=== PATIENT | male | born 1960 | race Hispanic/Latino ===

== ENCOUNTER 2018-02-12 05:38 | Emergency (ER) | payer SELFPAY | END 2018-02-12 07:10 | disposition home or self-care (01) | LOC: ERS 05:38 | DX: K04.7 Periapical abscess without sinus (principal); E03.9 Hypothyroidism, unspecified; E78.5 Hyperlipidemia, unspecified | CPT/HCPCS: 99282 ==

== ENCOUNTER 2018-06-05 07:07 | Emergency (ER) | payer SELFPAY ==
[2018-06-05 08:16] LABS: #Basophils 0.1 thou/uL (0.0-0.2); #Eosinphils 0.1 thou/uL (0.0-0.7); #Lymphocytes 0.9 thou/uL (1.20-3.40); #Monocytes 0.7 thou/uL (0.11-0.59); #Neutrophils 4.3 thou/uL (1.40-6.50); %Basophils 1.2 % (0.0-1.0); %Eosinophils 1.5 % (0.0-10.0); %Monocytes 11.6 % (0.0-10.0); %Neutrophils 70.7 % (42.0-75.0); Hemoglobin 11.1 g/dL (14.0-18.0); Mean Corpuscular HGB CONC 33.3 g/dL (32.0-36.0); Mean Platelet Volume 6.8 fL (7.4-10.4); Platelet Count 205 thou/uL (130-400); RBC Distribution Width 11.8 % (11.5-14.5); Red Blood Cell (RBC) Count 3.27 mill/uL (4.70-6.10); White Blood Cell (WBC) Count 6.1 thou/uL (4.8-10.8)
[2018-06-05 08:24] LABS: INR-International Normal Ratio 1.1; PTT 35.3 SEC (22.9-36.1); Prothrombin Time 14.2 SEC (12.0-14.7)
[2018-06-05 08:37] LABS: ALT (SGPT) 42 U/L (8-55); AST (SGOT) 84 U/L (5-34); Albumin 3.9 g/dL (3.5-5.0); Alkaline Phosphatase 68 U/L (40-150); Anion Gap 14 mmol/L (10-20); BUN (Urea Nitrogen) Less than 4 mg/dL (8.4-25.7); Bilirubin, Total 0.6 mg/dL (0.2-1.2); Calc. Creatinine Clearance 0 mL/min (70-130); Calcium 8.6 mg/dL (7.8-10.44); Carbon Dioxide 27 mmol/L (22-29); Chloride 105 mmol/L (98-107); Estimated GFR-MDRD Greater than 90; Globulin 3.5 g/dL (2.4-3.5); Glucose 91 mg/dL (70-105); Potassium 3.8 mmol/L (3.5-5.1); Protein, Total 7.4 g/dL (6.0-8.3); Sodium 142 mmol/L (136-145)
== END 2018-06-05 11:36 | disposition home or self-care (01) ==
LOC: ERS 07:07
DX: R04.0 Epistaxis (principal); E78.5 Hyperlipidemia, unspecified; I10 Essential (primary) hypertension; Z79.899 Other long term (current) drug therapy
CPT/HCPCS: 36415; 80053; 85025; 85610; 85730; 99283

== ENCOUNTER 2018-09-17 16:19 | Emergency (ER) | payer SELFPAY ==
[2018-09-17 16:53] LABS: #Lymphocytes 1.5 thou/uL (1.20-3.40); #Monocytes 0.4 thou/uL (0.11-0.59); #Neutrophils 1.9 thou/uL (1.40-6.50); %Basophils 0.7 % (0.0-1.0); %Eosinophils 0.7 % (0.0-10.0); %Lymphocytes 38.6 % (21.0-51.0); %Monocytes 9.9 % (0.0-10.0); %Neutrophils 50.2 % (42.0-75.0); Hemoglobin 11.8 g/dL (14.0-18.0); Mean Corpuscular HGB CONC 34.8 g/dL (32.0-36.0); Mean Corpuscular Hemoglobin 33.6 pg (27.0-31.0); Mean Corpuscular Volume 96.6 fL (78.0-98.0); Mean Platelet Volume 7.5 fL (7.4-10.4); Platelet Count 146 thou/uL (130-400); RBC Distribution Width 12.6 % (11.5-14.5); Red Blood Cell (RBC) Count 3.51 mill/uL (4.70-6.10); White Blood Cell (WBC) Count 3.8 thou/uL (4.8-10.8)
--- NOTE | 2018-09-17 17:07 | RAD ---
EXAM: Chest one view: HISTORY: Chest pain COMPARISON: 10/24/2010 FINDINGS: Heart size: Within normal limits. Lungs: Clear of acute process. No evidence for pneumonia, pleural effusion, acute edema, or pneumothorax, or other significant acute process. IMPRESSION: No significant acute intrathoracic disease.
[2018-09-17 17:08] LABS: ALT (SGPT) 43 U/L (8-55); AST (SGOT) 111 U/L (5-34); Albumin 4.2 g/dL (3.5-5.0); Alkaline Phosphatase 62 U/L (40-150); Anion Gap 17 mmol/L (10-20); BUN (Urea Nitrogen) Less than 4 mg/dL (8.4-25.7); Bilirubin, Total 0.4 mg/dL (0.2-1.2); CK (CPK) 145 U/L (30-200); Calc. Creatinine Clearance 0 mL/min (70-130); Calcium 8.3 mg/dL (7.8-10.44); Carbon Dioxide 22 mmol/L (22-29); Chloride 99 mmol/L (98-107); Estimated GFR-MDRD Greater than 90; Globulin 3.7 g/dL (2.4-3.5); Glucose 118 mg/dL (70-105); Potassium 3.8 mmol/L (3.5-5.1); Protein, Total 7.9 g/dL (6.0-8.3); Sodium 134 mmol/L (136-145)
== END 2018-09-17 18:10 | disposition home or self-care (01) ==
LOC: ERS 16:19
DX: R07.89 Other chest pain (principal); R51 Headache; K29.70 Gastritis, unspecified, without bleeding
CPT/HCPCS: 71045; 80053; 82550; 84484; 85025; 93005

== ENCOUNTER 2019-05-16 17:53 | Inpatient (IN) | payer SELFPAY ==
[~2019-05-16 17:53] MED LIST: Iopamidol-370 76% 500 ML 1 ML ONE
--- NOTE | 2019-05-16 19:01 | CT ---
Head CT without contrast 05/16/2019: Comparison: None HISTORY: Injury, trauma, pain TECHNIQUE: Axial CT imaging at 5 mm intervals from vertex through skull base without contrast FINDINGS: The imaged paranasal sinuses/mastoid air cells demonstrate mild mucosal thickening of bilat eral maxillary sinuses. No displaced calvarial fracture is seen. There is a hemispheric hypodense subdural fluid collection on the left measuring up to 9 mm in transv erse dimension in the posterior superior parietal region. No definite acute left-sided subdural hemorrhage. There is a hemispheric right-sided subdural hematoma with areas of hyperdensity near the vertex and i n the right frontal region and superior/posterior areas of hypodensity consistent with acute on chronic right-sided subdural hematoma. Small volume subarachnoid hemorrhage is suspected in the front otemporal region on the right on axial image 15. IMPRESSION: Findings suggesting bilateral subdural hematomas, acute on chronic on the right and chron ic on the left. Small volume subarachnoid hemorrhage on the right. Dr. Moreno's medical student, Tara Noe, was made aware at 6:54 PM 05/16/2019.
[2019-05-16 19:11] LABS: #Basophils 0.1 thou/uL (0.0-0.2); #Eosinphils 0.1 thou/uL (0.0-0.7); #Lymphocytes 1.9 thou/uL (1.20-3.40); #Monocytes 0.9 thou/uL (0.11-0.59); #Neutrophils 3.9 thou/uL (1.40-6.50); %Basophils 1.1 % (0.0-1.0); %Eosinophils 1.4 % (0.0-10.0); %Lymphocytes 27.5 % (21.0-51.0); %Monocytes 12.8 % (0.0-10.0); %Neutrophils 57.2 % (42.0-75.0); Hemoglobin 11.2 g/dL (14.0-18.0); Mean Corpuscular Hemoglobin 36.6 pg (27.0-31.0); Mean Platelet Volume 6.7 fL (7.4-10.4); Platelet Count 222 thou/uL (130-400); Red Blood Cell (RBC) Count 3.05 mill/uL (4.70-6.10); White Blood Cell (WBC) Count 6.8 thou/uL (4.8-10.8)
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
[2019-05-16] MEDS ORDERED: Lorazepam 2 MG/ML VIAL ONE (19:20)
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
[2019-05-16 19:35] LABS: ALT (SGPT) 40 U/L (8-55); AST (SGOT) 102 U/L (5-34); Acetaminophen Less than 6.0 mcg/mL (10.0-30.0); Albumin 3.8 g/dL (3.5-5.0); Alcohol 187 mg/dL (Less than 10); Alkaline Phosphatase 73 U/L (40-110); Anion Gap 16 mmol/L (10-20); BUN (Urea Nitrogen) 5 mg/dL (8.4-25.7); Bilirubin, Total 0.4 mg/dL (0.2-1.2); Calc. Creatinine Clearance 0 mL/min (70-130); Carbon Dioxide 22 mmol/L (22-29); Chloride 97 mmol/L (98-107); Estimated GFR-MDRD Greater than 90; Globulin 3.2 g/dL (2.4-3.5); Glucose 103 mg/dL (70-105); Potassium 3.6 mmol/L (3.5-5.1); Salicylate Less than 8.0 mg/dL (15.0-30.0); Sodium 131 mmol/L (136-145)
[2019-05-16 19:59] LABS: INR-International Normal Ratio 1.1; PTT 28.6 SEC (22.9-36.1); Prothrombin Time 13.7 SEC (12.0-14.7)
[2019-05-16] MEDS ORDERED: Ondansetron PF 4 MG/2 ML Vial IVP PRN (20:29)
[2019-05-16] MEDS ORDERED: Dextrose 50% Abboject 50 ML SYRINGE SLOW IVP PRN (20:29)
[2019-05-16] MEDS ORDERED: Dextrose 5% in Water 1,000 ML IV PRN (20:29)
[2019-05-16] MEDS ORDERED: Morphine 2 MG/ML SYRINGE SLOW IVP PRN (20:29)
[2019-05-16] MEDS ORDERED: Morphine 4 MG/ML VIAL SLOW IVP PRN (20:29)
[2019-05-16] MEDS ORDERED: hydrALAZINE 20 MG/ML VIAL SLOW IVP PRN (20:29)
[2019-05-16 20:36] LABS: Bacteria/HPF None Seen HPF (None Seen); Bilirubin Negative (Negative); Blood, Urine 1+ (Negative); Clarity Clear (Clear); Glucose, Urine (Dipstick) Normal (Negative); Leukocyte Negative Leu/uL (Negative); Nitrite Negative (Negative); Protein, Urine (Dipstick) Negative (Neg-Trace); RBC/HPF 0-3 HPF (0-3); Squamous Epithelial 0-3 HPF (0-3); Urobilinogen Normal mg/dL (Less than 2); WBC/HPF 0-3 HPF (0-3)
[2019-05-16 20:59] LABS: Magnesium 1.8 mg/dL (1.6-2.6); Phosphorus 3.6 mg/dL (2.3-4.7)
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
[2019-05-16] MEDS: Sodium Chloride 0.9% 1,000 ML IV SCH (22:46)
[2019-05-16] MEDS: Famotidine/PF 20 mg/2ml Vial SLOW IVP SCH (22:47)
[2019-05-16] MEDS: Senokot S 8.6-50 MG TAB PO SCH (22:52)
[2019-05-16] MEDS: Acetaminophen 500 MG TAB PO SCH (22:52)
[2019-05-16] MEDS: Oxazepam 10 MG CAP PO SCH (23:12)
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
[2019-05-17] MEDS: Acetaminophen 500 MG TAB PO SCH ×4 (02:24→20:47)
[2019-05-17 03:19] LABS: #Basophils 0.1 thou/uL (0.0-0.2); #Lymphocytes 0.7 thou/uL (1.20-3.40); #Monocytes 0.7 thou/uL (0.11-0.59); #Neutrophils 8.5 thou/uL (1.40-6.50); %Basophils 0.5 % (0.0-1.0); %Eosinophils 0.1 % (0.0-10.0); %Lymphocytes 7.1 % (21.0-51.0); %Monocytes 6.8 % (0.0-10.0); %Neutrophils 85.5 % (42.0-75.0); Hemoglobin 11.2 g/dL (14.0-18.0); Mean Corpuscular HGB CONC 34.8 g/dL (32.0-36.0); Mean Corpuscular Hemoglobin 35.9 pg (27.0-31.0); Mean Platelet Volume 7.1 fL (7.4-10.4); Platelet Count 237 thou/uL (130-400); RBC Distribution Width 11.1 % (11.5-14.5); Red Blood Cell (RBC) Count 3.11 mill/uL (4.70-6.10); White Blood Cell (WBC) Count 9.9 thou/uL (4.8-10.8)
[2019-05-17 03:41] LABS: Anion Gap 19 mmol/L (10-20); BUN (Urea Nitrogen) Less than 4 mg/dL (8.4-25.7); Calc. Creatinine Clearance 102 mL/min (70-130); Calcium 7.8 mg/dL (7.8-10.44); Carbon Dioxide 19 mmol/L (22-29); Chloride 98 mmol/L (98-107); Estimated GFR-MDRD Greater than 90; Glucose 118 mg/dL (70-105); Magnesium 1.5 mg/dL (1.6-2.6); Phosphorus 3.1 mg/dL (2.3-4.7); Potassium 3.8 mmol/L (3.5-5.1); Sodium 132 mmol/L (136-145)
[2019-05-17 04:36] LABS: Amphetamine Not Detected (NotDetected); Cocaine Metabolite Screen Not Detected (NotDetected); Medtox Reader # READER 1; Methamphetamine Not Detected (NotDetected); Opiate Screen Not Detected (NotDetected); Phencyclidine (PCP) Not Detected (NotDetected); THC/Cannabinoid Screen Not Detected (NotDetected)
[2019-05-17 04:37] LABS: Barbiturates Screen Not Detected (NotDetected); Benzodiazepine Screen Detected (NotDetected); Medtox Control Line Valid? VALID (VALID); Methadone Not Detected (NotDetected); Oxycodone Screen Not Detected (NotDetected); Tricyclic Screen Not Detected (NotDetected)
[2019-05-17] MEDS: Oxazepam 10 MG CAP PO SCH ×3 (05:43→22:07)
[2019-05-17] MEDS: Levothyroxine Sodium 25 MCG TAB PO SCH (05:44)
[2019-05-17] MEDS: Levothyroxine Sodium 100 MCG TAB PO SCH (05:44)
[2019-05-17] MEDS: Sodium Chloride 0.9% 1,000 ML IV SCH ×2 (07:51→09:32)
--- NOTE | 2019-05-17 08:25 | CT ---
PRELIMINARY REPORT/[facility]/EMERGENCY AFTER HOURS PROCEDURE: Exam: Unenhanced CT brain. History: Followup intracranial bleed. Comparison: May 16, 2019 Findings: Included paranasal sinuses are clear. Calvarium is intact. Bilateral mixed density cerebr al convexity subdural hematomas are present. Subdural hematoma on left measures upwards of 9 mm, sta ble. Subdural hematoma on the right measures upwards of 9 mm, stable. There is narrowing of the woody vian fissure on right in comparison to left, similar to prior exam. Along the superior aspect is per sistent serpiginous foci secondary to subarachnoid blood. Anterior inferior frontal falx is hyperden se suggesting small subdural component measuring 2 mm, stable. Ventricles are normal size and config uration. Impression: Stable bilateral subdural hematomas. Trace subarachnoid blood, right sylvian fissure. 2 mm anterior parafalcine subdural hematoma, stable. ELECTRONICALLY SIGNED BY: Eva Rosales MD May 17, 2019 4:47:15 AM [employer] This report is intended for review by the ordering physician only, in accordance of law. If you recei ve this report in error, please call [facility] at [phone]. FINAL REPORT EMERGENCY AFTER HOURS CT BRAIN WITHOUT CONTRAST: DATE: 05/17/2019 COMPARISON: 05/16/2019 at 1843 hours. FINDINGS/IMPRESSION: I agree with the findings and impression given in the preliminary report per [facility] physici an. There are stable bilateral subdural hematomas and a questionable small amount of trace blood in the r ight sylvian fissure.
[2019-05-17] MEDS ORDERED: Levothyroxine Sodium 25 MCG TAB PO SCH (09:00)
[2019-05-17] MEDS ORDERED: FLU VACC QS2019-20(6MOS UP)/PF 60 MCG/0.5 ML SYRINGE IM ONE (09:00)
[2019-05-17] MEDS ORDERED: LEVOTHYROXINE SODIUM 200 MG PO SCH (09:00)
[2019-05-17] MEDS ORDERED: Non-Formulary Item 1 EACH (Levothyroxine Sodium [Levothyroxine Sodium] 1 TAB) PO SCH (09:00)
[2019-05-17] MEDS: Polyethylene Glycol 3350 17 GM Packet PO SCH (09:28)
[2019-05-17] MEDS: Folic Acid 1 MG TAB PO SCH (09:28)
[2019-05-17] MEDS: Famotidine/PF 20 mg/2ml Vial SLOW IVP SCH (09:28)
[2019-05-17] MEDS: Senokot S 8.6-50 MG TAB PO SCH ×2 (09:28→20:47)
[2019-05-17] MEDS: Thiamine 100 MG TAB PO SCH (09:28)
[2019-05-17] MEDS: Multivitamin W/ Minerals 1 TAB PO SCH (09:28)
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
[2019-05-17] MEDS ORDERED: Magnesium 2 GM/50 ML 2 GM in Premix Bag 1 BAG IVPB SCH (10:00)
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
[2019-05-18] MEDS: Acetaminophen 500 MG TAB PO SCH ×3 (02:32→16:00)
[2019-05-18] MEDS: Levothyroxine Sodium 100 MCG TAB PO SCH (05:56)
[2019-05-18] MEDS: Oxazepam 10 MG CAP PO SCH ×2 (05:56→14:07)
[2019-05-18] MEDS: Levothyroxine Sodium 25 MCG TAB PO SCH (05:57)
[2019-05-18 06:28] LABS: Anion Gap 13 mmol/L (10-20); BUN (Urea Nitrogen) 5 mg/dL (8.4-25.7); Calc. Creatinine Clearance 90 mL/min (70-130); Calcium 8.4 mg/dL (7.8-10.44); Carbon Dioxide 24 mmol/L (22-29); Chloride 101 mmol/L (98-107); Estimated GFR-MDRD Greater than 90; Glucose 111 mg/dL (70-105); Magnesium 2.2 mg/dL (1.6-2.6); Phosphorus 2.4 mg/dL (2.3-4.7); Potassium 3.4 mmol/L (3.5-5.1); Sodium 135 mmol/L (136-145)
[2019-05-18] MEDS: Polyethylene Glycol 3350 17 GM Packet PO SCH (08:43)
[2019-05-18] MEDS: Multivitamin W/ Minerals 1 TAB PO SCH (08:44)
[2019-05-18] MEDS: Senokot S 8.6-50 MG TAB PO SCH (08:44)
[2019-05-18] MEDS: Thiamine 100 MG TAB PO SCH (08:44)
[2019-05-18] MEDS: Folic Acid 1 MG TAB PO SCH (08:44)
[2019-05-18] MEDS ORDERED: Potassium Phosphate 30 MMOL in Sodium Chloride 0.9% 250 ML 250 ML IVPB ONE (08:45)
[2019-05-18 11:21] VITALS: BP 119/78; TEMP 98.2
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
== END 2019-05-18 16:22 | disposition home or self-care (01) | DRG 86 ==
LOC: ERS 17:53 → CCU 20:35 → SURG A 05-17 16:18
PROVIDERS: ADMIT Surgery; ATTEND Surgery
DX: S06.6X1A Traumatic subarachnoid hemorrhage with loss of consciousness of 30 minutes or less, initial encounter (principal); E27.49 Other adrenocortical insufficiency; E87.1 Hypo-osmolality and hyponatremia; S06.5X1A Traumatic subdural hemorrhage with loss of consciousness of 30 minutes or less, initial encounter; Z85.850 Personal history of malignant neoplasm of thyroid; E89.0 Postprocedural hypothyroidism; Z88.0 Allergy status to penicillin; R40.2142 Coma scale, eyes open, spontaneous, at arrival to emergency department; R40.2362 Coma scale, best motor response, obeys commands, at arrival to emergency department; R40.2232 Coma scale, best verbal response, inappropriate words, at arrival to emergency department; R29.713 NIHSS score 13; S00.81XA Abrasion of other part of head, initial encounter; F10.10 Alcohol abuse, uncomplicated; Y90.6 Blood alcohol level of 120-199 mg/100 ml; V49.88XA Car occupant (driver) (passenger) injured in other specified transport accidents, initial encounter; Y93.89 Activity, other specified; Y92.89 Other specified places as the place of occurrence of the external cause; E03.9 Hypothyroidism, unspecified; E78.5 Hyperlipidemia, unspecified; I10 Essential (primary) hypertension; R40.2414 Glasgow coma scale score 13-15, 24 hours or more after hospital admission
CPT/HCPCS: 36415; 70450; 71260; 72125; 74177; 80048; 80053; 80306; 80307; 81003; 81015; 83735; 84100; 84484; 85025; 85610; 85730; 86850; 86900; 86901; 93005; 96361; 96374; G0390; J2060; J2270; J3475; J7050; Q9967; S0028

== ENCOUNTER 2019-06-20 13:13 | Outpatient (CLI) | payer OTHER ==
--- NOTE | 2019-06-20 13:48 | CT ---
CT HEAD WITHOUT IV CONTRAST COMPARISON: 05/17/2019 HISTORY: Follow-up traumatic subdural hemorrhage. TECHNIQUE: Axial CT imaging at 5 mm intervals from vertex through skull base without contrast FINDINGS: Again noted are bilateral subdural mixed density collections each of which has enlarged when compared to prior exam. The subdural hemorrhage on the left now measures 1.8 cm in greatest transverse dimension with greatest transverse dimension on the prior study of 1 cm. Greatest transverse dimensio n of the subdural collection/hemorrhage on the right measures 1.1 cm with previous measurement of 0.6 cm. The subdural collections extend from the bifrontal regions superiorly to the vertex bilateral ly and are also seen along the left frontoparietal convexities. There is greater degree of sulcal effacement on today's examination. There is mild mass effect on the frontal lobes bilaterally. No ally ft of midline structures is present. Ventricular system generally appears smaller in size compared to prior exam. There is no evidence of an acute cortical infarction. Visualized paranasal sinuses are clear. Osseous structures appear intact. IMPRESSION: 1. Interval enlargement of bilateral subdural collections/hemorrhages with largest subdural collectio n again seen on the left with greatest transverse dimension of 1.8 cm. There is greater degree of sulcal effacement on today's examination. No midline shift is present. 2. Above findings discussed with Michelle neurosurgical ANGELES, on 06/20/2019 at 1344 hours. The patient w ill remain in radiology until further direction is provided by neurosurgery.
== END 2019-06-20 13:14 | disposition home or self-care (01) ==
LOC: CT 13:13
PROVIDERS: ATTEND Surgery
DX: S06.5X9A Traumatic subdural hemorrhage with loss of consciousness of unspecified duration, initial encounter (principal)
CPT/HCPCS: 70450

== ENCOUNTER 2019-07-19 09:21 | Outpatient (CLI) | payer OTHER ==
--- NOTE | 2019-07-19 10:04 | CT ---
Exam: Head CT without contrast HISTORY: Posttraumatic subdural hematoma. Follow-up exam. COMPARISON: 06/20/2019 FINDINGS: Hemorrhage: Redemonstration of mixed attenuation bifrontal and temporal extra-axial hematomas, compat ible with subdural hematomas. Mixed attenuation suggesting components of subacute and possibly early chronic subdurals. Largest subdural is still along the left frontal convexity, measuring 1.6 cm . There is persistent mass effect upon the left frontal lobe with mild sulcal effacement. No significant midline shift. Brain parenchyma: Cortical flood-white matter differentiation is preserved. No mass effect or midline shift. Basilar cisterns are patent. Ventricular system: Stable configuration the ventricular system Calvarium: Intact. Sinuses and mastoid air cells: Adequate aeration. IMPRESSION: Redemonstration of mixed attenuation bifrontal and temporal subdural hematomas. Mixed attenuation fav ors a component of late subacute/early chronic hemorrhage. There is persistent mass effect upon the left cerebrum without midline shift. Results of study conveyed to Dr. Hidalgo via [employer] connect 07/19/2019 at 10:01 AM Code CR
== END 2019-07-19 09:22 | disposition home or self-care (01) ==
LOC: BICCT 09:21
PROVIDERS: ATTEND Surgery
DX: S06.5X9D Traumatic subdural hemorrhage with loss of consciousness of unspecified duration, subsequent encounter (principal)
CPT/HCPCS: 70450

== ENCOUNTER 2019-07-31 08:24 | Outpatient (CLI) | payer OTHER ==
--- NOTE | 2019-07-31 09:04 | CT ---
Exam: Head CT without contrast HISTORY: Follow-up subdural hematoma COMPARISON: 07/19/2019 FINDINGS: Hemorrhage: No acute intraparenchymal hemorrhage or extra-axial hematoma. Redemonstration of bilatera l subdural hematomas. Largest subdural hematoma is along the left frontal convexity and measures 1.9 cm, previously measuring 1.6 cm. There is mass effect upon the left frontal and temporal lobe. Ap proximately 2 mm of [id number] subfalcine herniation. Basilar cisterns are patent. Essentially stable subdural hematoma along the right frontal and temporal convexities. Brain parenchyma: Cortical flood-white matter differentiation is preserved. No mass effect or midline shift. Basilar cisterns are patent.Mild sulcal effacement the left cerebrum secondary to the left-sided subdural collection. Ventricular system: Ventricles and sulci are patent and symmetric. Calvarium: Intact. Sinuses and mastoid air cells: Adequate aeration. IMPRESSION: 1. Redemonstration of bilateral subdural hematomas. Subdural hematomas are chronic. Persistent mass e ffect upon the left frontal lobe. 2. No acute intracranial hemorrhage
== END 2019-07-31 08:25 | disposition home or self-care (01) ==
LOC: CT 08:24
PROVIDERS: ATTEND Surgery
DX: I62.03 Nontraumatic chronic subdural hemorrhage (principal)
CPT/HCPCS: 70450

== ENCOUNTER 2019-07-31 10:00 | Inpatient (IN) | payer OTHER ==
[2019-08-02] MEDS ORDERED: Clindamycin/D5W 900 mg/50 ml Premix Bag ONE (11:23)
[2019-08-02] MEDS ORDERED: Levofloxacin 500 mg/D5W 100 ml Premix Bag ONE (11:23)
[2019-08-02] MEDS ORDERED: Lidocaine 1% w/Epinephrine 1:100K 20 ML VIAL ONE (12:46)
[2019-08-02] MEDS ORDERED: Thrombin 5000 UNITS/5 ML VIAL ONE ×2 (12:46→14:23)
[2019-08-02] MEDS ORDERED: Midazolam HCl 2 mg/2 ml Vial ONE (12:47)
[2019-08-02] MEDS ORDERED: Fentanyl 250 MCG/5 ML VIAL ONE (12:47)
[2019-08-02] MEDS ORDERED: Lidocaine 0.5%/Epinephrine 1:200,000 50 ml Vial ONE (12:48)
[2019-08-02] MEDS ORDERED: Ondansetron PF 4 MG/2 ML Vial ONE (13:35)
[2019-08-02] MEDS ORDERED: diphenhydrAMINE 50 MG/ML VIAL ONE (13:35)
[2019-08-02] MEDS ORDERED: Rocuronium Bromide 10 MG/ML (10ML VIAL) ONE (13:35)
[2019-08-02] MEDS ORDERED: Esmolol 100 MG/10 ML VIAL ONE (13:35)
[2019-08-02] MEDS ORDERED: Dexamethasone 20 MG/5 ML VIAL ONE (13:35)
[2019-08-02] MEDS ORDERED: PROPOFOL 200 MG/20 ML VIAL ONE (13:35)
[2019-08-02] MEDS ORDERED: Glycopyrrolate 0.2 MG/ML 5 ML SYRINGE ONE (13:35)
[2019-08-02] MEDS ORDERED: levETIRAcetam 1000 MG/100 ML PREMIX BAG ONE (14:00)
[2019-08-02] MEDS ORDERED: Bacitracin Zinc Ointment 30 gm TUBE ONE (14:29)
[2019-08-02] MEDS ORDERED: Morphine 2 MG/ML SYRINGE SLOW IVP PRN (15:32)
[2019-08-02] MEDS ORDERED: Fleet Enema 133 ML BOT PR PRN (15:32)
[2019-08-02] MEDS ORDERED: Ondansetron PF 4 MG/2 ML Vial IVP PRN (15:32)
[2019-08-02] MEDS ORDERED: Docusate 100 MG CAP PO PRN (15:32)
[2019-08-02] MEDS ORDERED: Mag-Al 1200 mg/1200 mg/30 ML UDCUP PO PRN (15:32)
[2019-08-02] MEDS ORDERED: Promethazine HCl 25 MG/ML VIAL IM PRN (15:35)
[2019-08-02] MEDS ORDERED: Ondansetron HCl/PF 4 MG/2 ML Vial IVP PRN (15:35)
[2019-08-02] MEDS ORDERED: Fentanyl 100 MCG/2 ML VIAL ONE (15:47)
[2019-08-02] MEDS: Clindamycin/D5W 900 MG in Premix Bag 1 BAG IVPB SCH (18:34)
[2019-08-02] MEDS: Sodium Chloride 0.9% 1,000 ML IV SCH (18:35)
[2019-08-03] MEDS: Clindamycin/D5W 900 MG in Premix Bag 1 BAG IVPB SCH ×5 (00:37→23:54)
[2019-08-03 03:54] LABS: #Monocytes 0.7 thou/uL (0.11-0.59); #Neutrophils 5.7 thou/uL (1.40-6.50); %Basophils 0.1 % (0.0-1.0); %Eosinophils 0.1 % (0.0-10.0); %Lymphocytes 13.3 % (21.0-51.0); %Monocytes 9.2 % (0.0-10.0); %Neutrophils 77.3 % (42.0-75.0); Mean Corpuscular HGB CONC 33.7 g/dL (32.0-36.0); Mean Corpuscular Hemoglobin 34.3 pg (27.0-31.0); Mean Platelet Volume 6.9 fL (7.4-10.4); Platelet Count 336 thou/uL (130-400); RBC Distribution Width 11.8 % (11.5-14.5); White Blood Cell (WBC) Count 7.3 thou/uL (4.8-10.8)
[2019-08-03 04:16] LABS: Anion Gap 15 mmol/L (10-20); BUN (Urea Nitrogen) 10 mg/dL (8.4-25.7); Calc. Creatinine Clearance 77 mL/min (70-130); Calcium 8.5 mg/dL (7.8-10.44); Carbon Dioxide 20 mmol/L (22-29); Chloride 102 mmol/L (98-107); Estimated GFR-MDRD Greater than 90; Glucose 140 mg/dL (70-105); Potassium 3.8 mmol/L (3.5-5.1); Sodium 133 mmol/L (136-145)
[2019-08-03] MEDS: Levothyroxine Sodium 100 MCG TAB PO SCH (05:07)
[2019-08-03] MEDS: Levothyroxine Sodium 25 MCG TAB PO SCH (05:08)
[2019-08-03] MEDS: HYDROcodone/Acetaminophen 7.5/325 mg Tablet PO PRN ×3 (05:09→20:23)
--- NOTE | 2019-08-03 08:15 | CT ---
PRELIMINARY REPORT/[facility]/EMERGENCY AFTER HOURS PROCEDURE EXAM: CT Head Without Intravenous Contrast. CLINICAL HISTORY: F/U [facility] TECHNIQUE: Axial computed tomography images of the head/brain without intravenous contrast. COMPARISON: CT\[place] - CT BRAIN WO CON - 07/31/2019 08:51 AM CDT FINDINGS: BRAIN: There are there are 4 tanna holes in the bilateral frontal region with a decreased the bilatera l subdural fluid collection new since the last examination. There is a left frontal drain catheter wi th the pneumocephalus in bilateral frontal region. No midline shift. VENTRICLES: No hydrocephalus. ORBITS: The orbits are unremarkable. SINUSES AND MASTOIDS: The paranasal sinuses and mastoid air cells are clear. SOFT TISSUES: No significant facial or scalp soft tissue swelling evident. No radiopaque foreign body is seen. BONES: No acute skull fracture. MISCELLANEOUS: Small amount of hyperdense fluid in the right frontal and left parietal region, may re present relative fresh blood, similar to prior examination. IMPRESSION: 1. There are there are 4 tanna holes in the bilateral frontal region with a decreased the bilateral florian bdural fluid collection new since the last examination. 2. There is a left frontal drain catheter with the pneumocephalus in bilateral frontal region. No mid line shift. 3. Small amount of hyperdense fluid in the right frontal, parietal, and left parietal region, may re present relative fresh blood, similar to prior examination. ELECTRONICALLY SIGNED BY: Brock Hays MD August 03, 2019 4:37:39 AM CDT FINAL REPORT CT BRAIN WITHOUT CONTRAST: HISTORY: Subdural hematoma followup. COMPARISON: CT brain 07/31/2019. FINDINGS: Findings and impression are concordant with the preliminary report. POS: HOME
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
[2019-08-03] MEDS: Sodium Chloride 0.9% 1,000 ML IV SCH ×2 (09:23→20:24)
[2019-08-03 10:05] VITALS: BMI 20.1
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
--- NOTE | 2019-08-03 13:05 | PRG ---
DATE OF SERVICE: 08/03/2019 Mr. Susan Shine is postoperative day 1 from bilateral chronic subdural hematoma evacuation via tanna hole. He certainly has more vigor this morning than he did preoperatively. He is alert and has no pronator drift and good strength in bilateral upper and lower extremity myotomes. His speech appears to be fluent. His CT is satisfactory. His drain output was 200 mL yesterday and 25 mL since midnight. We will leave the drain in place. We will transfer him to the step-down unit and advance his diet as tolerated along with his activity as tolerated with a Physical Therapy consultation. If he is doing well tomorrow, in my opinion, the drain can be removed and he can be transferred to the floor. Job ID: [id number]
[2019-08-03] MEDS: levETIRAcetam 500 MG TAB PO SCH (20:23)
[2019-08-04] MEDS: Levothyroxine Sodium 100 MCG TAB PO SCH (06:27)
[2019-08-04] MEDS: Levothyroxine Sodium 25 MCG TAB PO SCH (06:27)
[2019-08-04] MEDS: Clindamycin/D5W 900 MG in Premix Bag 1 BAG IVPB SCH ×4 (06:28→23:44)
--- NOTE | 2019-08-04 09:57 | PRG ---
DATE OF SERVICE: 08/04/2019 I saw Sylvain Shine in the intermediate care unit this morning. A drain is still in the left side of the cranial vault. He had a subdural hematoma evacuation on . Mr. Susan Shine is wide awake, he answers questions appropriately, he was moving both sides of his body. He feels well. Among his electronically recorded vital signs, I do not see any fevers. His blood pressures have ranged between 100s and 120s. There is good movement in all of his extremities. There is no lateralizing motor or sensory deficit. Sodium was 133 yesterday and has not been checked today. We are going to move Mr. Susan Shine's drain. He will lie flat for an hour or two after the drain is removed and then slowly sit up. We will mobilize him and get him from the intermediate care unit up to the surgical floor. If he remains neurologically well, we can look for discharge tomorrow or Tuesday. I am going to check his sodium and keep him on antiepileptic medications during his hospitalization. Job ID: [id number] MTDD
[2019-08-04] MEDS: levETIRAcetam 500 MG TAB PO SCH ×2 (10:14→20:29)
[2019-08-04] MEDS: HYDROcodone/Acetaminophen 7.5/325 mg Tablet PO PRN ×2 (10:14→17:06)
[2019-08-04] MEDS: Sodium Chloride 0.9% 1,000 ML IV SCH (12:24)
[2019-08-05] MEDS: Sodium Chloride 0.9% 1,000 ML IV SCH ×2 (01:17→13:05)
[2019-08-05] MEDS: Levothyroxine Sodium 25 MCG TAB PO SCH (05:04)
[2019-08-05] MEDS: Levothyroxine Sodium 100 MCG TAB PO SCH (05:04)
[2019-08-05] MEDS: Clindamycin/D5W 900 MG in Premix Bag 1 BAG IVPB SCH ×4 (05:05→23:11)
[2019-08-05 08:48] LABS: Anion Gap 12 mmol/L (10-20); BUN (Urea Nitrogen) 9 mg/dL (8.4-25.7); Calc. Creatinine Clearance 82 mL/min (70-130); Calcium 8.7 mg/dL (7.8-10.44); Carbon Dioxide 27 mmol/L (22-29); Chloride 95 mmol/L (98-107); Estimated GFR-MDRD Greater than 90; Glucose 102 mg/dL (70-105); Potassium 3.5 mmol/L (3.5-5.1); Sodium 130 mmol/L (136-145)
[2019-08-05] MEDS: levETIRAcetam 500 MG TAB PO SCH ×2 (09:15→19:51)
[2019-08-05] MEDS: HYDROcodone/Acetaminophen 7.5/325 mg Tablet PO PRN ×2 (09:24→13:44)
--- NOTE | 2019-08-05 09:42 | PRG ---
DATE OF SERVICE: 08/05/2019 Mr. Susan Shine has been transferred out of the ICU yesterday to the regular floor. He is rather comfortable as I entered the room, is eating breakfast and speaking with his . He does complain of some incisional pain. He did not walk much yesterday, only transferred from the bed to the restroom and back. He did not get in the hallways or walk around his room. Among the electronically recorded vital signs, I do not see any fevers. On neurological examination, I do not see any lateralizing motor or sensory deficits. Incisions are well approximated. The plan for today for Mr. Susan Shine is to mobilize. If he is perfectly safe for all his activities of daily living and if he keeps his food down, he can dress himself and shower and walk and he could be discharged as early as this afternoon. Otherwise, arrangements could be made for discharge home tomorrow. We are going to follow the serum sodium now. Job ID: [id number]
[2019-08-05] MEDS: Acetaminophen 325 MG TAB PO PRN (13:45)
[2019-08-05] MEDS ORDERED: diphenhydrAMINE 25 MG CAP PO PRN (21:17)
[2019-08-05] MEDS ORDERED: Hydrocerin (Eucerin) Cream 120 gm Jar TOP PRN (21:17)
[2019-08-06] MEDS: HYDROcodone/Acetaminophen 7.5/325 mg Tablet PO PRN ×2 (04:08→12:41)
[2019-08-06] MEDS: Sodium Chloride 0.9% 1,000 ML IV SCH ×2 (05:09→15:42)
[2019-08-06] MEDS: Levothyroxine Sodium 100 MCG TAB PO SCH (05:10)
[2019-08-06] MEDS: Levothyroxine Sodium 25 MCG TAB PO SCH (05:10)
[2019-08-06] MEDS: Clindamycin/D5W 900 MG in Premix Bag 1 BAG IVPB SCH ×3 (05:12→17:03)
[2019-08-06 05:28] LABS: Anion Gap 9 mmol/L (10-20); BUN (Urea Nitrogen) 9 mg/dL (8.4-25.7); Calc. Creatinine Clearance 86 mL/min (70-130); Calcium 7.9 mg/dL (7.8-10.44); Carbon Dioxide 24 mmol/L (22-29); Chloride 89 mmol/L (98-107); Estimated GFR-MDRD Greater than 90; Glucose 106 mg/dL (70-105); Potassium 3.2 mmol/L (3.5-5.1)
[2019-08-06 05:30] LABS: Sodium 119 mmol/L (136-145)
[2019-08-06] MEDS ORDERED: Sodium Chloride 3% 500 ML IVPB SCH (06:15)
[2019-08-06] MEDS: levETIRAcetam 500 MG TAB PO SCH (07:32)
[2019-08-06] MEDS: Acetaminophen 325 MG TAB PO PRN (12:40)
[2019-08-06 13:18] LABS: Sodium 125 mmol/L (136-145)
--- NOTE | 2019-08-06 15:25 | PRG ---
DATE OF SERVICE: 08/06/2019 Mr. Susan Shine is now 3 days out from his tanna hole evacuation and is neurologically intact. He has had hyponatremia. He does have a history of chronic alcohol abuse likely because he is not getting alcohol and his ADH levels have increased as they typically are suppressed with alcohol. He was given 3% saline yesterday. His sodium has gone from 133 on the 15th down to 119 early this morning; however, it has increased back up to 125. We spoke with his daughter and they prefer that he goes home. He would like to go home as well. Given that he has had improvement in his sodium at this point, I would be fine with that. We will continue Keppra I think at this time, as I would not want his sodium to drop at home and him have a seizure. Job ID: [id number]
[2019-08-06 16:07] VITALS: BP 107/73; TEMP 98.6
== END 2019-08-06 19:05 | disposition home or self-care (01) | DRG 26 ==
LOC: EDSTATUS 08-02 10:00 → SURG A 08-02 10:28 → CCU 08-02 18:16 → IMCU/EMU 08-03 12:39 → SURG B 08-04 12:02
PROVIDERS: ADMIT Surgery; ATTEND Surgery
PROC: 00C43ZZ Extirpation of Matter from Intracranial Subdural Space, Percutaneous Approach (ICD-10-PCS; principal; 2019-08-02)
PROC: 009630Z Drainage of Cerebral Ventricle with Drainage Device, Percutaneous Approach (ICD-10-PCS; 2019-08-02)
DX: I62.03 Nontraumatic chronic subdural hemorrhage (principal); E87.1 Hypo-osmolality and hyponatremia; E03.9 Hypothyroidism, unspecified; F10.10 Alcohol abuse, uncomplicated; F17.210 Nicotine dependence, cigarettes, uncomplicated; Z90.49 Acquired absence of other specified parts of digestive tract; Z88.0 Allergy status to penicillin
CPT/HCPCS: 36415; 36416; 70450; 80048; 85025; J1100; J1200; J1953; J1956; J2001; J2250; J2405; J2704; J3010; J3490; J7131; Q0163

== ENCOUNTER 2019-08-24 12:24 | Outpatient (CLI) | payer OTHER ==
--- NOTE | 2019-08-24 14:08 | CT ---
CT HEAD WITHOUT CONTRAST: 08/24/19 INDICATIONS: Follow-up subdural hematoma. Comparison made to the most recent head CT of 08/03/19 and a prior exams of 07/31/19 and . FINDINGS: Bilateral tanna holes are seen as noted on the recent study of 08/03/19 which was performed postop. Pre vious exam showed evaluation of bilateral subdurals. Here was pneumocephalus present on 08/03/19. There are persistent bilateral subdural collections on the exam of 08/03/19. On today's exam, there continues to be small bilateral subdural hematomas. These are much smaller jovita n on the prior study. On the left, there is subdural hematoma with a left frontal lobe superiorly errol sures up to 8 mm. There is a tiny subdural on the right over the right frontal lobe cortex measuring in the 4 mm range. Both of these collections show some internal densities making these complex collections. No evidence of acute hemorrhage. There is no midline shift or mass effect. Mild chronic ischemic white matter ch anges are stable. No mass or infarct within the parenchyma. IMPRESSION: Persistent bilateral chronic subdural hematoma over both frontal lobes. Slightly larger on the left a s noted above. POS: [facility]
== END 2019-08-24 12:25 | disposition home or self-care (01) ==
LOC: BICCT 12:24
PROVIDERS: ATTEND Surgery
DX: I62.03 Nontraumatic chronic subdural hemorrhage (principal)
CPT/HCPCS: 70450

== ENCOUNTER 2019-10-05 07:49 | Outpatient (CLI) | payer OTHER ==
--- NOTE | 2019-10-05 08:16 | CT ---
CT BRAIN NONCONTRAST: DATE: 10/05/2019 HISTORY: 59-year-old male follow-up chronic subdural hematomas and headache COMPARISON: 08/24/2019 FINDINGS: Again noted are the 4 upper tanna holes. The small left chronic subdural hematoma has further decreased in volume, and currently measures appr oximately 5 mm in transverse dimension at the upper portion of the supratentorial intracranial cavity. The previously demonstrated small right chronic subdural hematoma is difficult to visualize on the cu rrent CT, and appears to have resolved. No new hemorrhage. No obstructive hydrocephalus. No mass effect or midline shift. Diffuse involutional changes of the brain. Chronic ischemic white matter changes. IMPRESSION: 1) interval further decrease in size of small left chronic subdural hematoma. 2) interval resolution of small right chronic subdural hematoma 3) involutional changes of the brain and chronic ischemic white matter changes.
== END 2019-10-05 07:50 | disposition home or self-care (01) ==
LOC: BICCT 07:49
PROVIDERS: ATTEND Surgery
DX: I62.03 Nontraumatic chronic subdural hemorrhage (principal); R51 Headache; I67.82 Cerebral ischemia
CPT/HCPCS: 70450

== ENCOUNTER 2020-01-05 23:47 | Emergency (ER) | payer OTHER, SELFPAY ==
[2020-01-06 00:29] LABS: #Basophils 0.1 thou/uL (0.0-0.2); #Lymphocytes 2.7 thou/uL (1.20-3.40); #Monocytes 0.6 thou/uL (0.11-0.59); #Neutrophils 2.7 thou/uL (1.40-6.50); %Basophils 1.1 % (0.0-1.0); %Eosinophils 0.1 % (0.0-10.0); %Lymphocytes 44.7 % (21.0-51.0); %Monocytes 9.5 % (0.0-10.0); %Neutrophils 44.6 % (42.0-75.0); Mean Corpuscular HGB CONC 35.2 g/dL (32.0-36.0); Mean Corpuscular Hemoglobin 33.4 pg (27.0-31.0); Mean Corpuscular Volume 94.7 fL (78.0-98.0); Mean Platelet Volume 8.2 fL (7.4-10.4); Platelet Count 136 thou/uL (130-400); RBC Distribution Width 13.6 % (11.5-14.5); Red Blood Cell (RBC) Count 4.18 mill/uL (4.70-6.10); White Blood Cell (WBC) Count 5.9 thou/uL (4.8-10.8)
[2020-01-06 00:53] LABS: ALT (SGPT) 41 U/L (8-55); AST (SGOT) 119 U/L (5-34); Albumin 3.7 g/dL (3.5-5.0); Alkaline Phosphatase 86 U/L (40-110); Anion Gap 20 mmol/L (10-20); BUN (Urea Nitrogen) 5 mg/dL (8.4-25.7); Bilirubin, Total 0.5 mg/dL (0.2-1.2); Calc. Creatinine Clearance 0 mL/min (70-130); Calcium 7.7 mg/dL (7.8-10.44); Carbon Dioxide 16 mmol/L (22-29); Chloride 95 mmol/L (98-107); Estimated GFR-MDRD 73; Globulin 4.2 g/dL (2.4-3.5); Glucose 90 mg/dL (70-105); Potassium 3.4 mmol/L (3.5-5.1); Protein, Total 7.9 g/dL (6.0-8.3); Sodium 128 mmol/L (136-145)
[2020-01-06 00:53] LABS: Acetaminophen Less than 6.0 mcg/mL (10.0-30.0); Alcohol 32 mg/dL (Less than 10); CK (CPK) 1006 U/L (30-200); Salicylate Less than 8.0 mg/dL (15.0-30.0)
[2020-01-06 02:26] LABS: Anion Gap 14 mmol/L (10-20); BUN (Urea Nitrogen) 4 mg/dL (8.4-25.7); Calc. Creatinine Clearance 0 mL/min (70-130); Carbon Dioxide 18 mmol/L (22-29); Chloride 103 mmol/L (98-107); Estimated GFR-MDRD Greater than 90; Glucose 97 mg/dL (70-105); Sodium 132 mmol/L (136-145)
--- NOTE | 2020-01-06 07:54 | CT ---
PRELIMINARY REPORT/[facility]/EMERGENCY AFTER HOURS PROCEDURE: EXAM: CT Head Without Intravenous Contrast. CLINICAL HISTORY: ER 2... fall, possible seizure; AMS. TECHNIQUE: Axial computed tomography images of the head/brain without intravenous contrast. COMPARISON: [facility] - CT BRAIN WO CON - 10/05/2019 07:55 AM CDT FINDINGS: BRAIN: No acute intraparenchymal hemorrhage. Periventricular hypodensities. No mass lesion. No CT e vidence for acute territorial infarct. No midline shift or extra-axial collection. VENTRICLES: No hydrocephalus. ORBITS: The orbits are unremarkable. SINUSES AND MASTOIDS: The paranasal sinuses and mastoid air cells are clear. Mild bilateral maxillar y sinus mucosal wall thickening. SOFT TISSUES: No significant facial or scalp soft tissue swelling evident. No radiopaque foreign body is seen. Calcifications along the left parietal scalp deep soft tissue. BONES: No acute skull fracture. Unchanged appearance of multiple bur holes in the frontal and pariet al bones. IMPRESSION: 1. No acute intracranial abnormality. 2. Sequela of chronic small vessel ischemic disease, overall unchanged from 10/05/2019. ELECTRONICALLY SIGNED BY: Osito Rosenthal DO Jan 06, 2020 12:43:05 AM CDT FINAL REPORT HEAD CT WITHOUT CONTRAST: HISTORY: Fall. Altered mental status. Possible seizure. COMPARISON: 10/05/2019. FINDINGS: Hemorrhage: No intraparenchymal hemorrhage or extra-axial hematoma. Brain parenchyma: Cortical flood-white matter differentiation is preserved. No mass effect or midline shift. Basilar cisterns are patent. Ventricular system: Ventricles and sulci are patent and symmetric. Calvarium: Stable tanna hole defects. Sinuses and mastoid air cells: Adequate aeration. IMPRESSION: 1. This report is in agreement with initial report by [facility]. 2. No acute intracranial process. Transcribed Date/Time: 01/06/2020 8:14 AM
== END 2020-01-06 02:50 | disposition home or self-care (01) ==
LOC: ERS 23:47
DX: R56.9 Unspecified convulsions (principal); H10.9 Unspecified conjunctivitis; R00.0 Tachycardia, unspecified; E03.9 Hypothyroidism, unspecified; E78.5 Hyperlipidemia, unspecified; I10 Essential (primary) hypertension; Z85.819 Personal history of malignant neoplasm of unspecified site of lip, oral cavity, and pharynx
CPT/HCPCS: 36415; 36416; 70450; 80053; 80307; 82550; 85025

== ENCOUNTER 2021-08-14 23:34 | Inpatient (IN) | payer OTHER, SELFPAY ==
[2021-08-15] MEDS ORDERED: Aspirin Chewable 81 MG TAB ONE (00:11)
[2021-08-15 00:19] LABS: Hemoglobin 13.9 g/dL (14.0-18.0); Mean Corpuscular HGB CONC 34.8 g/dL (32.0-36.0); Mean Corpuscular Hemoglobin 36.1 pg (27.0-31.0); Mean Platelet Volume 7.1 fL (7.4-10.4); Platelet Count 164 thou/uL (130-400); RBC Distribution Width 11.2 % (11.5-14.5); Red Blood Cell (RBC) Count 3.85 mill/uL (4.70-6.10); White Blood Cell (WBC) Count 6.2 thou/uL (4.8-10.8)
[2021-08-15 00:40] LABS: ALT (SGPT) 56 U/L (8-55); AST (SGOT) 151 U/L (5-34); Albumin 4.5 g/dL (3.4-4.8); Alcohol 343 mg/dL (Less than 10); Alkaline Phosphatase 58 U/L (40-110); Anion Gap 18 mmol/L (10-20); BUN (Urea Nitrogen) 4 mg/dL (8.4-25.7); Bilirubin, Total 0.9 mg/dL (0.2-1.2); Calc. Creatinine Clearance 0 mL/min (70-130); Calcium 8.9 mg/dL (7.8-10.44); Carbon Dioxide 20 mmol/L (23-31); Chloride 95 mmol/L (98-107); Globulin 3.5 g/dL (2.4-3.5); Glucose 108 mg/dL (80-115); Lipase 55 U/L (8-78); Potassium 3.5 mmol/L (3.5-5.1); Sodium 129 mmol/L (136-145)
[2021-08-15 00:44] LABS: Band 1 % (5-11); Lymphocytes 44 % (21-51); MDiff Complete? YES; Macrocytosis SLIGHT = 6-15 cells (100X) (0-5/hpf); Monocytes 11 % (0-10); Neutrophil 38 % (42-75); Platelet Morphology Comment Appears Adequate; Reactive Lymphocytes 4 % (0-10)
[2021-08-15] MEDS ORDERED: Mag-Al 1200 mg/1200 mg/30 ML UDCUP ONE (00:44)
[2021-08-15] MEDS ORDERED: Lidocaine Viscous Sol 2% 15 ml UD Cup ONE (00:44)
[2021-08-15 03:28] LABS: Troponin I Less than 0.010 ng/mL (< 0.028)
[2021-08-15 03:51] VITALS: BMI 19.5
[2021-08-15] MEDS ORDERED: Ondansetron PF 4 MG/2 ML Vial IVP PRN (04:00)
[2021-08-15] MEDS ORDERED: Ondansetron ODT 4 MG TAB SL PRN (04:00)
[2021-08-15 07:14] LABS: Troponin I Less than 0.010 ng/mL (< 0.028)
[2021-08-15] MEDS ORDERED: Nitroglycerin 0.4 MG TAB (25 Tab Bottle) SL PRN (07:17)
[2021-08-15] MEDS ORDERED: Sodium Chloride 0.9% 1,000 ML IV SCH (07:30)
[2021-08-15] MEDS: Enoxaparin Sodium 40 MG/0.4 ML SYRINGE SC SCH (10:24)
[2021-08-15] MEDS: Famotidine/PF 20 mg/2ml Vial SLOW IVP SCH ×2 (10:24→20:58)
[2021-08-15] MEDS: Aspirin Chewable 81 MG TAB PO SCH (10:24)
[2021-08-15] MEDS: Multivitamins, Adult 10 ML, Folic Acid 1 MG, Thiamine HCl 100 MG in Dextrose 5 %-0.45 %... IV SCH (12:09)
[2021-08-15] MEDS ORDERED: Lorazepam 2 MG/ML VIAL ONE (13:25)
[2021-08-15] MEDS: Lorazepam 2 MG/ML VIAL SLOW IVP PRN (13:30)
[2021-08-15] MEDS ORDERED: niCARdipine 25 MG in Sodium Chloride 0.9% 250 ML 240 ML IVPB SCH (13:45)
[2021-08-15] MEDS ORDERED: niCARdipine 25 MG in Sodium Chloride 0.9% 250 ML 250 ML IVPB SCH (13:45)
[2021-08-15] MEDS ORDERED: Diltiazem 125 MG in Sodium Chloride 0.9% 100 ML IVPB SCH (14:00)
[2021-08-15] MEDS ORDERED: Diltiazem HCl 125 MG in Premix Bag 1 BAG IVPB SCH (14:00)
[2021-08-15 14:15] LABS: Anion Gap 16 mmol/L (10-20); BUN (Urea Nitrogen) 4 mg/dL (8.4-25.7); Calc. Creatinine Clearance 87 mL/min (70-130); Calcium 8.2 mg/dL (7.8-10.44); Carbon Dioxide 20 mmol/L (23-31); Chloride 103 mmol/L (98-107); Glucose 123 mg/dL (80-115); Potassium 3.8 mmol/L (3.5-5.1); Sodium 135 mmol/L (136-145)
[2021-08-15] MEDS: Diazepam 5 MG TAB PO SCH ×2 (14:24→20:58)
[2021-08-15 15:48] LABS: SARS-CoV-2 PCR by NAA Not Detected (NotDetected)
[2021-08-16 05:04] LABS: Hemoglobin A1c 4.9 % (4.0-6.0)
[2021-08-16 05:21] LABS: Cardiac Risk 3.2 (Less than 4.5)
[2021-08-16] MEDS: Diazepam 5 MG TAB PO SCH ×3 (06:00→22:06)
[2021-08-16] MEDS: Famotidine/PF 20 mg/2ml Vial SLOW IVP SCH ×2 (08:12→20:33)
[2021-08-16] MEDS: Enoxaparin Sodium 40 MG/0.4 ML SYRINGE SC SCH (08:13)
[2021-08-16] MEDS: Aspirin Chewable 81 MG TAB PO SCH (08:13)
[2021-08-16] MEDS: Multivitamins, Adult 10 ML, Folic Acid 1 MG, Thiamine HCl 100 MG in Dextrose 5 %-0.45 %... IV SCH (13:31)
[2021-08-17] MEDS: Lorazepam 2 MG/ML VIAL SLOW IVP PRN ×3 (02:16→19:44)
[2021-08-17] MEDS ORDERED: Ziprasidone 20 MG VIAL ONE (04:20)
[2021-08-17] MEDS ORDERED: Ziprasidone 20 MG VIAL IM SCH (04:30)
[2021-08-17] MEDS ORDERED: Sterile Water 10 ML VIAL FS PRN (04:45)
[2021-08-17] MEDS: Diazepam 5 MG TAB PO SCH ×3 (05:46→21:24)
[2021-08-17] MEDS ORDERED: Lorazepam 2 MG/ML VIAL SLOW IVP SCH ×2 (06:00→07:00)
[2021-08-17] MEDS ORDERED: Lorazepam 2 MG/ML VIAL ONE (06:53)
[2021-08-17 08:45] LABS: Critical Call Chemistry HX; Phosphorus 1.6 mg/dL (2.3-4.7)
[2021-08-17 08:48] LABS: ALT (SGPT) 39 U/L (8-55); AST (SGOT) 73 U/L (5-34); Alkaline Phosphatase 50 U/L (40-110); Anion Gap 13 mmol/L (10-20); BUN (Urea Nitrogen) 4 mg/dL (8.4-25.7); Bilirubin, Total 1.2 mg/dL (0.2-1.2); Calc. Creatinine Clearance 84 mL/min (70-130); Calcium 8.1 mg/dL (7.8-10.44); Carbon Dioxide 21 mmol/L (23-31); Chloride 105 mmol/L (98-107); Globulin 3.2 g/dL (2.4-3.5); Glucose 157 mg/dL (80-115); Protein, Total 7.2 g/dL (5.8-8.1); Sodium 136 mmol/L (136-145)
[2021-08-17 08:57] LABS: Magnesium 1.8 mg/dL (1.6-2.6)
[2021-08-17] MEDS: Enoxaparin Sodium 30 MG/0.3 ML SYRINGE SC SCH (09:07)
[2021-08-17] MEDS: Famotidine/PF 20 mg/2ml Vial SLOW IVP SCH ×2 (09:07→21:24)
[2021-08-17] MEDS: Aspirin Chewable 81 MG TAB PO SCH (09:48)
[2021-08-17] MEDS ORDERED: Electrolyte Replacement Protocol FS PRN (10:30)
[2021-08-17] MEDS ORDERED: Potassium Chloride 20 MEQ TAB PO SCH (11:00)
[2021-08-17] MEDS ORDERED: Potassium Phosphate 30 MMOL in Sodium Chloride 0.9% 250 ML 250 ML IVPB SCH (12:00)
[2021-08-17] MEDS: Potassium Chloride 20 MEQ in Premix Bag 1 BAG IVPB SCH ×2 (12:46→15:11)
[2021-08-17] MEDS: Multivitamins, Adult 10 ML, Folic Acid 1 MG, Thiamine HCl 100 MG in Dextrose 5 %-0.45 %... IV SCH (12:46)
[2021-08-17 13:07] LABS: Actual Bicarbonate (HCO3v) 23 mEq/L (22-28); Base Excess -0.8 mEq/L (-2.0 to +3.0); Calcium, Ionized (venous) 1.04 mmol/L (1.16-1.32); Chloride (VBG) 103 mmol/L (98-106); Hemoglobin (Hb) 13.1 g/dL (13.1-17.2); Potassium (VBG) 3.36 mmol/L (3.70-5.30); Sodium 136.4 mmol/L (133-146); pH (venous) 7.43 (7.32-7.43)
[2021-08-17] MEDS ORDERED: Magnesium 2 GM/50 ML(in water) 2 GM in Premix Bag 1 BAG IVPB SCH (14:00)
[2021-08-17] MEDS ORDERED: Haloperidol Lactate 5 MG/ML VIAL ONE (15:56)
[2021-08-17] MEDS ORDERED: Haloperidol Lactate 5 MG/ML VIAL IM PRN (16:13)
[2021-08-17] MEDS ORDERED: Haloperidol Lactate 5 MG/ML VIAL IM SCH (16:15)
[2021-08-18] MEDS: Lorazepam 2 MG/ML VIAL SLOW IVP PRN ×2 (00:16→05:05)
[2021-08-18 04:09] LABS: #Basophils 0.1 thou/uL (0.0-0.2); #Lymphocytes 0.7 thou/uL (1.20-3.40); #Monocytes 0.6 thou/uL (0.11-0.59); #Neutrophils 6.2 thou/uL (1.40-6.50); %Basophils 0.8 % (0.0-1.0); %Eosinophils 0.6 % (0.0-10.0); %Lymphocytes 9.2 % (21.0-51.0); %Monocytes 8.4 % (0.0-10.0); Hemoglobin 12.9 g/dL (14.0-18.0); Mean Corpuscular HGB CONC 33.7 g/dL (32.0-36.0); Mean Corpuscular Hemoglobin 35.8 pg (27.0-31.0); Platelet Count 129 thou/uL (130-400); Red Blood Cell (RBC) Count 3.61 mill/uL (4.70-6.10); White Blood Cell (WBC) Count 7.7 thou/uL (4.8-10.8)
[2021-08-18 04:24] LABS: ALT (SGPT) 47 U/L (8-55); AST (SGOT) 93 U/L (5-34); Albumin 4.1 g/dL (3.4-4.8); Alkaline Phosphatase 53 U/L (40-110); Anion Gap 12 mmol/L (10-20); BUN (Urea Nitrogen) Less than 4 mg/dL (8.4-25.7); Bilirubin, Total 1.3 mg/dL (0.2-1.2); Calc. Creatinine Clearance 84 mL/min (70-130); Calcium 8.4 mg/dL (7.8-10.44); Carbon Dioxide 20 mmol/L (23-31); Chloride 109 mmol/L (98-107); Globulin 3.5 g/dL (2.4-3.5); Glucose 120 mg/dL (80-115); Potassium 3.5 mmol/L (3.5-5.1); Protein, Total 7.6 g/dL (5.8-8.1); Sodium 137 mmol/L (136-145)
[2021-08-18] MEDS: Diazepam 5 MG TAB PO SCH (05:04)
[2021-08-18] MEDS: Aspirin Chewable 81 MG TAB PO SCH (07:41)
[2021-08-18] MEDS: Enoxaparin Sodium 30 MG/0.3 ML SYRINGE SC SCH (08:32)
[2021-08-18] MEDS: Famotidine/PF 20 mg/2ml Vial SLOW IVP SCH ×2 (09:59→20:52)
[2021-08-18] MEDS: Multivitamins, Adult 10 ML, Folic Acid 1 MG, Thiamine HCl 100 MG in Dextrose 5 %-0.45 %... IV SCH (11:49)
[2021-08-18] MEDS ORDERED: Potassium Chloride 20 MEQ TAB PO SCH (12:00)
[2021-08-18] MEDS: Potassium Chloride 20 MEQ in Premix Bag 1 BAG IVPB SCH ×2 (13:05→15:49)
[2021-08-19 04:28] LABS: ALT (SGPT) 39 U/L (8-55); AST (SGOT) 60 U/L (5-34); Albumin 3.8 g/dL (3.4-4.8); Alkaline Phosphatase 53 U/L (40-110); Anion Gap 14 mmol/L (10-20); BUN (Urea Nitrogen) 4 mg/dL (8.4-25.7); Bilirubin, Total 1.4 mg/dL (0.2-1.2); Calc. Creatinine Clearance 83 mL/min (70-130); Calcium 8.8 mg/dL (7.8-10.44); Carbon Dioxide 18 mmol/L (23-31); Chloride 109 mmol/L (98-107); Globulin 3.5 g/dL (2.4-3.5); Glucose 95 mg/dL (80-115); Magnesium 2.2 mg/dL (1.6-2.6); Phosphorus 3.6 mg/dL (2.3-4.7); Potassium 3.8 mmol/L (3.5-5.1); Protein, Total 7.3 g/dL (5.8-8.1); Sodium 137 mmol/L (136-145)
[2021-08-19] MEDS: Enoxaparin Sodium 30 MG/0.3 ML SYRINGE SC SCH (09:18)
[2021-08-19] MEDS: Thiamine 100 MG TAB PO SCH (09:18)
[2021-08-19] MEDS: Folic Acid 1 MG TAB PO SCH (09:18)
[2021-08-19] MEDS: Famotidine/PF 20 mg/2ml Vial SLOW IVP SCH ×2 (09:18→21:44)
[2021-08-19] MEDS: Aspirin Chewable 81 MG TAB PO SCH (09:18)
[2021-08-19] MEDS ORDERED: GUAIFENESIN SF SOLN 200 MG/10 ML UDCUP PO PRN (09:43)
[2021-08-19] MEDS ORDERED: Calcium Carbonate 500 MG ChewTAB PO PRN (09:43)
[2021-08-19] MEDS ORDERED: HYDROcodone/Acetaminophen 5/325 mg Tablet PO PRN (09:43)
[2021-08-19] MEDS ORDERED: Loratadine 10 MG TAB PO PRN (09:43)
[2021-08-19] MEDS ORDERED: Loperamide HCl 2 MG CAP PO PRN (09:43)
[2021-08-19] MEDS ORDERED: Moisturizing Cream (Eucerin) 113 GM JAR TOP PRN (09:43)
[2021-08-19] MEDS ORDERED: hydrALAZINE 20 MG/ML VIAL SLOW IVP PRN (09:43)
[2021-08-19] MEDS ORDERED: Ondansetron PF 4 MG/2 ML Vial IVP PRN (09:43)
[2021-08-19] MEDS ORDERED: Senokot S 8.6-50 MG TAB PO PRN (09:43)
[2021-08-19] MEDS ORDERED: Cepastat Lozenges 1 LOZ PO PRN (09:43)
[2021-08-19] MEDS: Artificial Tear Sol 15 ML BOT EA EYE PRN (17:32)
[2021-08-20 06:55] LABS: ALT (SGPT) 44 U/L (8-55); AST (SGOT) 60 U/L (5-34); Albumin 4.2 g/dL (3.4-4.8); Alkaline Phosphatase 57 U/L (40-110); Anion Gap 13 mmol/L (10-20); BUN (Urea Nitrogen) 8 mg/dL (8.4-25.7); Bilirubin, Total 1.2 mg/dL (0.2-1.2); Calc. Creatinine Clearance 61 mL/min (70-130); Calcium 9.2 mg/dL (7.8-10.44); Carbon Dioxide 20 mmol/L (23-31); Chloride 107 mmol/L (98-107); Globulin 3.7 g/dL (2.4-3.5); Glucose 96 mg/dL (80-115); Magnesium 2.1 mg/dL (1.6-2.6); Phosphorus 4.3 mg/dL (2.3-4.7); Potassium 3.4 mmol/L (3.5-5.1); Protein, Total 7.9 g/dL (5.8-8.1); Sodium 137 mmol/L (136-145)
[2021-08-20] MEDS ORDERED: Potassium Chloride 20 MEQ TAB PO SCH (08:00)
[2021-08-20] MEDS: Folic Acid 1 MG TAB PO SCH (08:33)
[2021-08-20] MEDS: Aspirin Chewable 81 MG TAB PO SCH (08:33)
[2021-08-20] MEDS: Famotidine/PF 20 mg/2ml Vial SLOW IVP SCH (08:33)
[2021-08-20] MEDS: Thiamine 100 MG TAB PO SCH (08:33)
[2021-08-20] MEDS: Enoxaparin Sodium 30 MG/0.3 ML SYRINGE SC SCH (08:33)
[2021-08-20] MEDS: Artificial Tear Sol 15 ML BOT EA EYE PRN (08:44)
[2021-08-20 12:10] VITALS: BP 126/81; TEMP 98.1
== END 2021-08-20 15:05 | disposition home or self-care (01) | DRG 896 ==
LOC: ERS 23:34 → 2SW 08-15 02:03 → OBSVTOIN 08-15 13:42 → CCU 08-17 06:49 → T4-A 08-19 21:59
PROVIDERS: ADMIT Family Medicine; ATTEND Family Medicine
PROC: HZ2ZZZZ Detoxification Services for Substance Abuse Treatment (ICD-10-PCS; principal; 2021-08-15)
DX: F10.131 Alcohol abuse with withdrawal delirium (principal); G93.41 Metabolic encephalopathy; F10.121 Alcohol abuse with intoxication delirium; Z20.822 Contact with and (suspected) exposure to COVID-19; E89.0 Postprocedural hypothyroidism; I25.10 Atherosclerotic heart disease of native coronary artery without angina pectoris; Y90.8 Blood alcohol level of 240 mg/100 ml or more; F17.210 Nicotine dependence, cigarettes, uncomplicated; D53.9 Nutritional anemia, unspecified; G47.33 Obstructive sleep apnea (adult) (pediatric); I48.0 Paroxysmal atrial fibrillation; R74.01 Elevation of levels of liver transaminase levels; E87.6 Hypokalemia; Z98.890 Other specified postprocedural states; Z78.1 Physical restraint status; Z87.820 Personal history of traumatic brain injury; Z85.850 Personal history of malignant neoplasm of thyroid; Z79.890 Hormone replacement therapy; Z88.0 Allergy status to penicillin; Z91.19 Patient's noncompliance with other medical treatment and regimen
CPT/HCPCS: 36415; 71045; 78452; 80048; 80053; 80061; 80307; 82140; 82805; 83036; 83690; 83735; 84100; 84484; 85025; 93005; 93010; 93306; 94760; 96372; 96374; A9500; G0378; J1630; J1650; J2060; J3411; J3475; J3480; J3486; J3490; J7042; J7050; Q0162; S0028; U0003; U0005